=== PATIENT | female | born 1985 | race Caucasian/White ===

== ENCOUNTER 2017-01-02 10:23 | Emergency (ER) | payer SELFPAY ==
[~2017-01-02] VITALS: Ht 170.2 cm; Wt 72.6 kg
[~2017-01-02 10:23] MED LIST: AUGMENTIN 875-1 EACH PO; KEFLEX500 MG PO; MACRODANTIN100 MG PO; NORCO 5-325 TA1 EACH PO; PENICILLIN V P500 MG PO; PYRIDIUM200 MG PO; TYLENOL325 MG PO
== END 2017-01-02 10:43 | disposition home or self-care (01) ==
LOC: ED 10:23
DX: Z00.8 Encounter for other general examination (principal)

== ENCOUNTER 2018-07-04 11:38 | Emergency (ER) | payer OTHER ==
[~2018-07-04] VITALS: Ht 172.7 cm; Wt 72.6 kg
== END 2018-07-04 15:31 | disposition home or self-care (01) ==
LOC: ED 11:38
DX: O03.9 Complete or unspecified spontaneous abortion without complication (principal); O99.331 Smoking (tobacco) complicating pregnancy, first trimester; F17.200 Nicotine dependence, unspecified, uncomplicated; Z3A.08 8 weeks gestation of pregnancy
CPT/HCPCS: 76801; 76817; 80048; 81001; 84702; 85025; 86900; 86901; 96360; 99284-25; J2790; J7030

== ENCOUNTER 2019-05-04 13:30 | Inpatient (IN) | payer OTHER ==
--- NOTE | ~2019-05-04 | OR ---
[facility] [address] [place], [place] [address] Draft DATE OF OPERATION: 05/04/2019 SURGEON: Alanna Ayoub DO PREOPERATIVE DIAGNOSES: 1. Intrauterine at 39 weeks gestation. 2. Spontaneous rupture of membranes. 3. History of prior . 4. Rh negative, status post RhoGAM. POSTOPERATIVE DIAGNOSES: 1. Intrauterine at 39 weeks gestation. 2. Spontaneous rupture of membranes. 3. History of prior . 4. Rh negative, status post RhoGAM. PROCEDURE PERFORMED: Repeat low transverse delivery. ANESTHESIA: Spinal. BOAT OAR MAKER: Parth Baer MD. COMPLICATIONS: None. ESTIMATED BLOOD LOSS: 600 mL. SPECIMENS: None. FINDINGS: Delivery of viable female in the MARTY position with no nuchal cord. 7 pounds 1 ounce with Apgars of 8 and 9 at 1 and 5 minutes respectively. No adhesive disease or contraindications on surgical findings for future . INDICATION: PATIENT NAME: BRAVO COLEY OPERATIVE REPORT DATE OF : [birth year] REPORT #: [id number] PHYSICIAN: ALANNA AYOUB DO PCP: NO PRIMARY CARE PHYSICIAN REPORT IS CONFIDENTIAL AND NOT TO BE RELEASED WITHOUT AUTHORIZATION [facility] [address] [place] [address] Draft Ms. Coley is a pleasant 33-year-old G3, P1-0-1-1 white female with intrauterine at 39 weeks and 1 day gestation, who presents to Labor and Delivery complaining of leaking copious amounts of mucousy clear fluid. The patient was closed, thick, and high and initially Nitrazine was negative. The patient continued to leak fluid and contractions began increasing in frequency and intensity. AmniSure was then performed and that was positive. Decision was made to proceed with repeat low transverse delivery. Risks, benefits, and alternatives were discussed in detail with the patient. The patient understands and wishes to proceed with the procedure. TECHNIQUE: The patient was taken to the operating room. A time-out was performed to confirm correct patient, correct procedure. Spinal anesthesia was adequately established and the patient was prepped and draped in the supine position with a bump under the right hip. Medrano catheter was inserted. ICPs were on and running. The patient received 2 g Ancef preoperatively per SKIP protocol. Heparin was not indicated. A Pfannenstiel skin incision was made through the prior scar and carried down to the fascia where the fascia was nicked in the midline. Fascial incision was extended bilaterally using sharp dissection with Velázquez scissors. The fascia was grasped with Jacinda's, elevated, and the underlying rectus muscles were dissected off bluntly and sharply. Rectus muscles were then bluntly divided in the midline. The peritoneum was grasped with hemostats, elevated, and incised sharply. Peritoneal incision was extended cephalad caudad using sharp and blunt dissection. Survey of the abdomen and pelvis was performed with no adhesive disease noted. Claudio self-retractor was placed. The lower uterine segment identified. Hysterotomy was then performed using a surgical scalpel and hysterotomy was then extended bilaterally using blunt dissection. Very little to no amniotic fluid was noted upon hysterotomy. This surgeon's hand was placed into the uterus and the vertex elevated into the maternal abdomen, delivered with the assistance of fundal pressure. No nuchal cord was noted and the shoulders delivered easily with the assistance of fundal pressure. The remainder of the delivered and the was vigorous and cried at delivery. Cord was then doubly clamped and cut and the handed to the waiting pediatric team for further care. Cord blood was obtained for routine analysis and then the placenta was expressed intact with centrally inserted 3-vessel cord. The uterus was cleared of any remaining products of conception or clot. However, the uterus did remain somewhat boggy, although bleeding was light. An additional 20 units of Pitocin were placed into the bag of LR and bolused. Hysterotomy was then repaired in a running locked suture of 0 Vicryl. A 2nd imbricating suture was then applied with good imbrication using 0 Vicryl. A small amount of oozing was noted in the midline and this was made hemostatic with 2-0 Vicryl [id number] sutures. Good hemostasis was appreciated and the pelvis was irrigated. The Claudio self-retractor was removed. The adnexa were identified and normal and the pericolic gutters were cleared of any remaining blood. ACell sheet was applied to the PATIENT NAME: BRAVO COLEY OPERATIVE REPORT DATE OF : [birth year] REPORT #: [id number] PHYSICIAN: ALANNA AYOUB DO PCP: NO PRIMARY CARE PHYSICIAN REPORT IS CONFIDENTIAL AND NOT TO BE RELEASED WITHOUT AUTHORIZATION [facility] [address] [facility] [place], [place] [address] Draft lower uterine segment and the peritoneum was then reapproximated using 2-0 Vicryl in a running manner. The rectus was then made hemostatic using Bovie electrocautery and rectus was plicated with 3 loose interrupted simple sutures of 0 Vicryl. ACell powder was applied to the rectus sheath. The fascia was then reapproximated using 0 Vicryl in a running nonlocked manner. Subcu was examined, found to be hemostatic after Bovie electrocautery. Subcu was irrigated and again hemostatic. Since subcu was less than 2 cm, this was not reapproximated and the skin was then reapproximated using surgical poonam. The uterus was then Crede'd for a small amount of blood and the patient was taken to PACU in good and stable condition with her . Sponge, needle, instrument count was correct x2 at the end of the procedure. Dr. Baer was present and participated in all portions of the procedure. Alanna Ayoub DO JDW/MODL /[id number] Copies: ~ PATIENT NAME: BRAVO COLEY OPERATIVE REPORT DATE OF : [birth year] REPORT #: [id number] PHYSICIAN: ALANNA AYOUB DO PCP: NO PRIMARY CARE PHYSICIAN REPORT IS CONFIDENTIAL AND NOT TO BE RELEASED WITHOUT AUTHORIZATION
--- NOTE | 2019-05-04 17:13 | NUR ---
05/04/19 1713 Nicole Manzanares 1626 PT ARRIVED IN PACU IN [facility]BC WIDE AWAKE WITH NO C/O'S. 1630 BABY AT BREAST WITH FBC RN AT BEDSIDE HELPING. DAD TAKING PICTURES. 1640 MOM CHANGED SIDES TO BREAST FEED. NO C/O'S. 1650 REPORT GIVEN TO F[facility] RN. DAD AT BEDSIDE.
--- NOTE | 2019-05-05 11:29 | PR ---
[facility] [address] [facility] [place], [place] [address] Signed PP Progress Notes Datetime Report Generated by CPN: 05/05/2019 11:29 SUBJECTIVE: [id number] Pain: Within normal limits Nausea/Vomiting: Denies Flatus: Yes Bowel Movement: No Vital Signs: [id number] Vital Signs: Reviewed; Within Normal Limits EXAM: [id number] Cardiovascular: Normal Respiratory: Normal Abdomen/Uterus: Normal Lochia: Normal Vulva/Perineum: Not Done Breasts: Not Done Extremities: Normal Incision: Normal Progress: Normal Exam Comments: Fundus firm U-2 nontender IMPRESSION/PLAN/PROCEDURES: [id number] Impression: Normal progression Progress Notes: Pt seen and doing well. Ambulating, voiding, and tolerating full diet. Pain and lochia minimal. well. No questions or concerns. Anticipate d/c home tomorrow. Signing Physician: Alanna Ayoub DO Copies: ~ *Electronically Signed* 05/05/19 1129 ALANNA AYOUB DO PATIENT NAME: BRAVO HERNANDEZ JADEN PROGRESS NOTE DATE OF : [birth year] PHYSICIAN: ALANNA AYOUB DO [facility] #: [id number] REPORT IS CONFIDENTIAL AND NOT TO BE RELEASED WITHOUT AUTHORIZATION
--- NOTE | 2019-05-06 08:07 | PR ---
[facility] [address] [facility] [place], [place] [address] Signed PP Progress Notes Datetime Report Generated by CPN: 05/06/2019 08:07 SUBJECTIVE: [id number] Pain: Within normal limits Nausea/Vomiting: Denies Flatus: Yes Bowel Movement: Yes Vital Signs: [id number] Vital Signs: Reviewed; Within Normal Limits EXAM: [id number] Cardiovascular: Normal Respiratory: Normal Abdomen/Uterus: Normal Lochia: Normal Vulva/Perineum: Not Done Breasts: Not Done CVA Tenderness: Normal Extremities: Normal Incision: Normal Progress: Normal Exam Comments: Fundus firm U-1 Minimally tender to palpation IMPRESSION/PLAN/PROCEDURES: [id number] Impression: Normal progression Plan: Remove poonam; Discharge Procedures: Rubella Progress Notes: Pt seen and examined. Doing well. Ambulating, voiding, and tolerating full diet. Pain and lochia minimal. well but c/o increased afterpains. No fever or malodorous discharge. Unsure of plans for pp contraception. Signing Physician: Alanna Ayoub DO Copies: ~ *Electronically Signed* 05/06/19 08 ALANNA AYOUB DO PATIENT NAME: BRAVO HERNANDEZ PROGRESS NOTE DATE OF : [birth year] PHYSICIAN: ALANNA AYOUB DO RPT #: [id number] REPORT IS CONFIDENTIAL AND NOT TO BE RELEASED WITHOUT AUTHORIZATION
== END 2019-05-06 12:47 | disposition home or self-care (01) | DRG 788 ==
LOC: FBC 13:30
PROVIDERS: ADMIT Obstetrics & Gynecology
PROC: 10D00Z1 Extraction of Products of Conception, Low, Open Approach (ICD-10-PCS; principal; 2019-05-04 15:00)
DX: O34.211 Maternal care for low transverse scar from previous cesarean delivery (principal); N85.8 Other specified noninflammatory disorders of uterus; Z3A.39 39 weeks gestation of pregnancy; Z37.0 Single live birth; O99.62 Diseases of the digestive system complicating childbirth; K21.9 Gastro-esophageal reflux disease without esophagitis; O99.334 Smoking (tobacco) complicating childbirth; F17.210 Nicotine dependence, cigarettes, uncomplicated
CPT/HCPCS: 01961; 36415; 59025; 84112; 85027; 99213; A9270; J0690; J1885; J2001; J2270; J2274; J2405; J2590; J3010; J7121

== ENCOUNTER 2021-10-05 10:55 | Inpatient (IN) | payer OTHER ==
[~2021-10-05] VITALS: Ht 175 cm; Wt 92.5 kg
--- NOTE | 2021-10-06 12:57 | NUR ---
10/06/21 1257 Leni Wood 6802 PATIENT INTO ROOM 105. STEVEN RUVALCABA REPORT RECIEVED FROM. PATIENT IS DROWSY. DENIES ANY PAIN OR NASUEA. BREATHING EQUAL AND UNLABORED. OXYGEN SATURATIONS ABOVE 90%. PATIENT SPINAL LEVEL CHECKED. FUNDAL CHECK COMPLETE. SCD'S ON. IVF INFUSING. 18 GAUGE IN RIGHT HAND PATENT.
--- NOTE | 2021-10-07 10:06 | PR ---
[facility] [address] [place], [place] [address] Signed PP Progress Notes Datetime Report Generated by CPN: 10/07/2021 10:06 SUBJECTIVE: [id number] Pain: Within Normal Limits Nausea/Vomiting: Denies Flatus: Yes Bowel Movement: No Vital Signs: [id number] Vital Signs: Reviewed; Within Normal Limits Cardiovascular: Normal Respiratory: Normal Abdomen/Uterus: Normal Lochia: Normal Vulva/Perineum: Not Done Breasts: Not Done CVA Tenderness: Normal Extremities: Normal Incision: Normal Progress: Normal Exam Comments: Fundus firm U-[address] IMPRESSION/PLAN/PROCEDURES: [id number] Impression: Normal Progression Plan: Discharge Progress Notes: Pt seen and examined. Doing well. Ambulatling, voiding, and tolerating full diet. Pain and lochia minimal. well. No fevers/chills/lightheadedness. No concerns. Patient strongly desires d/c home today. Rh negative and rhogam workup pending; will receive prior to d/c if indicated. Reviewed d/c instruction in detail. Planning natural family planning for pp contraception. F/U in 2-3 days for staple removal in the office. All questions answered. Signing Physician: Alanna Ayoub DO Copies: ~ *Electronically Signed* 10/07/21 1006 ALANNA AYOUB DO PATIENT NAME: BRAVO HERNANDEZ JADEN PROGRESS NOTE DATE OF : [birth year] PHYSICIAN: ALANNA AYOUB DO RPT #: [id number] REPORT IS CONFIDENTIAL AND NOT TO BE RELEASED WITHOUT AUTHORIZATION
== END 2021-10-07 15:55 | disposition home or self-care (01) | DRG 786 ==
LOC: FBC 10-06 09:40 → MS 10-07 07:35 → FBC 10-07 10:30
PROVIDERS: ADMIT Obstetrics & Gynecology; ATTEND Obstetrics & Gynecology
PROC: 10D00Z1 Extraction of Products of Conception, Low, Open Approach (ICD-10-PCS; principal; 2021-10-06 12:00)
DX: O34.211 Maternal care for low transverse scar from previous cesarean delivery (principal); K83.1 Obstruction of bile duct; O98.42 Viral hepatitis complicating childbirth; O26.62 Liver and biliary tract disorders in childbirth; Z37.0 Single live birth; Z3A.37 37 weeks gestation of pregnancy; O99.344 Other mental disorders complicating childbirth; F41.9 Anxiety disorder, unspecified; Z79.899 Other long term (current) drug therapy; O77.0 Labor and delivery complicated by meconium in amniotic fluid; B18.2 Chronic viral hepatitis C; O99.02 Anemia complicating childbirth; Z87.891 Personal history of nicotine dependence; O26.893 Other specified pregnancy related conditions, third trimester; L29.9 Pruritus, unspecified
CPT/HCPCS: 36415; 85027; 86850; 86870; 86900; 86901; A9270; J0690; J1650; J1790; J1885; J2001; J2274; J2405; J2550; J2590; J2765; J7121

== ENCOUNTER 2023-02-27 15:09 | Inpatient (IN) | payer OTHER ==
[~2023-02-27] VITALS: Ht 172.7 cm; Wt 89.8 kg
[2023-02-28 06:08] LABS: HEMATOCRIT 34.9 % (35.0-50.0); HEMOGLOBIN 11.6 g/dL (12.0-18.0); MCH 27.6 (27-36); MCHC 33.3 g/dl (30-36); MCV 82.9 fl (81-99); RBC 4.21 M/ul (4.3-5.7); RDW 13.2 (10.5-15.0)
[2023-02-28 06:20] VITALS: BP 129/89
[2023-02-28 07:39] LABS: ABO O; ANTIBODY IDENTIFICATION ANTI-D; ANTIBODY SCREEN POSITIVE; RH NEGATIVE
[2023-02-28 09:04] VITALS: BP 111/65
[2023-02-28 09:14] LABS: AMPHETAMINES, URINE NEGATIVE (NEGATIVE); BARBITURATES, URINE NEGATIVE (NEGATIVE); BUPRENORPHINE, URINE NEGATIVE (NEGATIVE); CANNABINOID, URINE NEGATIVE (NEGATIVE); COCAINE, URINE NEGATIVE (NEGATIVE); ECSTASY, URINE NEGATIVE (NEGATIVE); FENTANYL, URINE NEGATIVE (NEGATIVE); METHADONE, URINE NEGATIVE (NEGATIVE); OPIATES, URINE NEGATIVE (NEGATIVE); OXYCODONE, URINE NEGATIVE (NEGATIVE); PHENCYCLIDINE, URINE NEGATIVE (NEGATIVE)
--- NOTE | 2023-02-28 09:15 | NUR ---
02/28/23 0915 Cassy Zimmerman 0876 PT ARRIVED TO ROOM WITH FBC AND AT BEDSIDE. PT REPORTS PAIN IN MID ABD AND NO NAUSEA. VSS. 0842 BABY TO CHEST WITH FBC RN. FUNDAL CHECK PT GRIMACING AND MOANING AND REPORTS 10/10 PAIN.
[2023-02-28 09:55] LABS: BENZODIAZEPINE, URINE NEGATIVE (NEGATIVE)
[2023-02-28 12:16] LABS: HEMATOCRIT 32.4 % (35.0-50.0); HEMOGLOBIN 10.7 g/dL (12.0-18.0); MCH 27.7 (27-36); MCV 83.8 fl (81-99); PLATELET COUNT 188 K/uL (140-440); RBC 3.87 M/ul (4.3-5.7); RDW 13.4 (10.5-15.0)
[2023-02-28 12:31] LABS: BASOPHILS, MANUAL DIFF 2; INR 1.03 (0.80-1.30); LYMPHOCYTES, MANUAL DIFF 9; NEUTROPHILS, MANUAL DIFF 89; PROTIME 13.1 Sec (11.2-14.2)
[2023-02-28 12:33] LABS: PARTIAL THROMBOPLASTIN TIME 31.9 Sec (22.9-41.3)
--- NOTE | 2023-02-28 14:10 | PR ---
[facility] [address] [place], [place] [address] Signed PP Progress Notes Datetime Report Generated by CPN: 02/28/2023 14:10 SUBJECTIVE: [id number] Pain: Within Normal Limits Pain Comments: bleeding Vital Signs: [id number] Vital Signs: Reviewed; Within Normal Limits Cardiovascular: Normal Respiratory: Normal Abdomen/Uterus: Normal Lochia: Abnormal Vulva/Perineum: Normal Extremities: Normal Incision: Normal Progress: Normal Exam Comments: 1417 total cumulative blood loss 168cc of clot evacuated from the uterus. Pt was uncomfortable but tolerated well. Pt declined exam under anesthesia. IMPRESSION/PLAN/PROCEDURES: [id number] Progress Notes: Called to pt's room for bleeding. Pt w/ evacuation of clot by RN. Labs were normal w/ fibrinogen 369, Hgb 10.7, Plts 188, and PT/PTT/INR normal. Pt received Pitocin, Tranexaminc acid, Cytotec, and methergine. Small amount of continued trickling. On exam, pt w/ moderate sized blood clot in uterine cavity. Clot was expressed from the uterus and weighted for total cQBL 1417. Vitals normal. Exam shows no cervical or vaginal laceration. Discussed that if bleeding continues, would start 2nd IV and consider exam under anesthesia, D_C, and or placement of intrauterine Bakri or Caitlyn. Pt understands and agrees. Signing Physician: Alanna Ayoub DO Copies: ~ *Electronically Signed* 02/28/23 1410 ALANNA AYOUB (GAVINO) DO PATIENT NAME: BRAVO HERNANDEZ JADEN PROGRESS NOTE DATE OF : [birth year] PHYSICIAN: ALANNA AYOUB DO (JD) RPT #: [id number] REPORT IS CONFIDENTIAL AND NOT TO BE RELEASED WITHOUT AUTHORIZATION
[2023-03-01 05:28] LABS: HEMATOCRIT 25.9 % (35.0-50.0); HEMOGLOBIN 8.6 g/dL (12.0-18.0); MCH 27.6 (27-36); MCHC 33.3 g/dl (30-36); MCV 82.8 fl (81-99); RBC 3.13 M/ul (4.3-5.7); RDW 13.2 (10.5-15.0)
[2023-03-01 06:23] LABS: ABO O; ANTIBODY SCREEN POSITIVE; FETAL HEMOGLOBIN SCREEN NEGATIVE; RH NEGATIVE
[2023-03-01 06:24] LABS: RHIG STATUS NOT A CANDIDATE
--- NOTE | 2023-03-01 09:30 | NUR ---
FBC ROUNDS. MOTHER SLEEPING. DID NOT DISTURB. PROVIDED PRAYER.
--- NOTE | 2023-03-01 09:38 | PR ---
[facility] [address] [place], [place] [address] Signed PP Progress Notes Datetime Report Generated by CPN: 03/01/2023 09:37 SUBJECTIVE: [id number] Pain: Within Normal Limits Pain Comments: bleeding Nausea/Vomiting: Denies Flatus: No Bowel Movement: No Vital Signs: [id number] Vital Signs: Reviewed; Within Normal Limits EXAM: Ongoing Cardiovascular: Not Done Respiratory: Not Done Abdomen/Uterus: Normal Lochia: Normal Vulva/Perineum: Not Done Breasts: Not Done CVA Tenderness: Not Done Extremities: Normal Incision: Normal Progress: Normal Exam Comments: 1417 total cumulative blood loss 168cc of clot evacuated from the uterus. Pt was uncomfortable but tolerated well. Pt declined exam under anesthesia. IMPRESSION/PLAN/PROCEDURES: [id number] Impression: Normal Progression Plan: Continue Present Management Procedures: None Progress Notes: S: 37 yo s/p repeat section, hemorrhage. POD #1. Doing well. Denies MIRANDA, CP, SOB, F/C, N/V, RUQ pain, changes in vision, vaginal discharge. Tolerating regular diet, ambulating, voiding, pain controlled. Reports minimal bleeding since interventions yesterday. O: AFVSS Abd: Soft. Fundus firm, below umbilicus. Appropriately tender to palpation. Incision, C/D/I. No erythema or drainage. Musc: DELEON. A/P: Patient well. Continue and postop care. Disposition in house. *Electronically Signed* 03/01/23 0937 FANNY WESTBROOK MD PATIENT NAME: BRAVO HERNANDEZ JADEN PROGRESS NOTE DATE OF : 89 PHYSICIAN: FANNY WESTBROOK MD RPT #: [id number] REPORT IS CONFIDENTIAL AND NOT TO BE RELEASED WITHOUT AUTHORIZATION [address] [place], [place] [address] Signed Likely discharge home tomorrow AM. Signing Physician: Fanny Westbrook MD Copies: ~ *Electronically Signed* 03/01/23 0937 FANNY WESTBROOK MD PATIENT NAME: SHYANNE HERNANDEZKWADWO STANLEY PROGRESS NOTE DATE OF : 89 PHYSICIAN: FANNY WESTBROOK MD RPT #: [id number] REPORT IS CONFIDENTIAL AND NOT TO BE RELEASED WITHOUT AUTHORIZATION
[2023-03-02 05:36] LABS: HEMATOCRIT 26.7 % (35.0-50.0); HEMOGLOBIN 9.1 g/dL (12.0-18.0); MCH 28.7 (27-36); MCHC 34.3 g/dl (30-36); MCV 83.8 fl (81-99); RBC 3.18 M/ul (4.3-5.7); RDW 13.1 (10.5-15.0)
--- NOTE | 2023-03-02 06:40 | PR ---
[facility] [address] [place], [place] [address] Signed PP Progress Notes Datetime Report Generated by CPN: 03/02/2023 06:40 SUBJECTIVE: [id number] Pain: Within Normal Limits Pain Comments: bleeding Nausea/Vomiting: Denies Flatus: Yes Bowel Movement: Yes Vital Signs: [id number] Vital Signs: Reviewed; Within Normal Limits EXAM: Ongoing Cardiovascular: Not Done Respiratory: Not Done Abdomen/Uterus: Normal Lochia: Normal Vulva/Perineum: Not Done Breasts: Not Done CVA Tenderness: Not Done Extremities: Normal Incision: Normal Progress: Normal Exam Comments: 1417 total cumulative blood loss 168cc of clot evacuated from the uterus. Pt was uncomfortable but tolerated well. Pt declined exam under anesthesia. IMPRESSION/PLAN/PROCEDURES: [id number] Impression: Normal Progression Plan: Discharge Procedures: None; Rhogam Progress Notes: 37 yo s/p repeat section. POD #2. Doing well. Denies MIRANDA, CP, SOB F/C, N/V, RUQ pain, changes in vision, vaginal discharge. Tolerating regular diet, ambulating, voiding on own, pain controlled. Had some passage of clots overnight and was started on PO methergine. No reported bleeding or passage of clots during the day. O: AFVSS Abd: Soft, appropriately TTP. Fundus firm and below umbilicus. Incision C/D/I and without erythema or drainage. Sonny in place. Musc: PANCHO. *Electronically Signed* 03/02/23 0640 FANNY WESTBROOK MD PATIENT NAME: BRAVO HERNANDEZ JADEN PROGRESS NOTE DATE OF : [birth year] PHYSICIAN: FANNY WESTBROOK MD RPT #: [id number] REPORT IS CONFIDENTIAL AND NOT TO BE RELEASED WITHOUT AUTHORIZATION [facility] [address] [place] [address] Arley Anders [address] Signed A/P: Patient doing well. Meeting all hospital milestones. Will discharge home today. Signing Physician: Fanny Westbrook MD Copies: ~ *Electronically Signed* 03/02/2340 FANNY WESTBROOK MD PATIENT NAME: BRAVO HERNANDEZ JADEN PROGRESS NOTE DATE OF : [birth year] PHYSICIAN: FANNY WESTBROOK MD RPT #: [id number] REPORT IS CONFIDENTIAL AND NOT TO BE RELEASED WITHOUT AUTHORIZATION
--- NOTE | 2023-04-04 07:54 | OR ---
[facility] [address] [place], [place] [address] Signed DATE OF OPERATION: 02/28/2023 SURGEON: Alanna Ayoub DO PREOPERATIVE DIAGNOSES: 1. Intrauterine at 36 weeks gestation. 2. History of prior . 3. Cholestasis with severe elevation of bile salts with recommendation for delivery in the 36 weeks per MFM. 4. Hepatitis C in . POSTOPERATIVE DIAGNOSES: 1. Intrauterine at 36 weeks gestation. 2. History of prior . 3. Cholestasis with severe elevation of bile salts with recommendation for delivery in the 36 weeks per MFM. 4. Hepatitis C in . ORCHARD SPRAYER: Donna Álvarez MD. PROCEDURE PERFORMED: Repeat low transverse delivery. COMPLICATIONS: None. ESTIMATED BLOOD LOSS: 600 mL. DRAINS: Medrano to gravity. FINDINGS: Delivery of viable female , 6 pounds 4 ounces with Apgars of 9 and 9. Normal uterus, tubes, and ovaries. COMPLICATIONS: None. Electronically Signed By: ALANNA AYOUB DO (JD) 04/04/23 0754 PATIENT NAME: BRAVO COLEY OPERATIVE REPORT DATE OF : [birth year] REPORT #: [id number] PHYSICIAN: ALANNA AYOUB DO (JD) PCP: BENY FLAHERTY MD REPORT IS CONFIDENTIAL AND NOT TO BE RELEASED WITHOUT AUTHORIZATION [address] [address] Signed INDICATIONS: Ms. Coley is a very pleasant 37-year-old G6, P2-0-3-2 with IUP in the 36 weeks gestation. has been complicated by prior and cholestasis. We have been closely monitoring her liver enzymes and bile salts per [facility] recommendation and the patient was noted to have a significant and severe increase in her bile salts prompting recommendation by [facility] to deliver in the 36th week. Risks, benefits, and alternatives were discussed in detail with the patient. The patient understands and wishes to proceed with procedure. TECHNIQUE: The patient was taken to the operating room where a time-out was performed to confirm correct patient and correct procedure. Spinal anesthesia was adequately established. The patient was prepped and draped in the supine position with a bump under the right hip. Medrano catheter was inserted. ICPs were on and running and the patient received 2 g of Ancef preoperatively per SCIP protocol. Once spinal was noted to be adequate, a Pfannenstiel skin incision was made through the prior scar and carried down to the fascia. The fascia was nicked in the midline and fascial incision was extended bilaterally using curved Velázquez scissors. The fascia was grasped with Jacinda's, elevated, and the underlying rectus muscle dissected off bluntly and sharply. Rectus was divided in the midline and the peritoneum was entered bluntly. Peritoneal incision was extended cephalad and caudad using blunt and sharp dissection. The lower uterine segment was identified and appeared normal. The Claudio self retractor was placed in the abdomen and hysterotomy was then performed using a surgical scalpel for clear amniotic fluid. Hysterotomy was extended bilaterally using blunt dissection. The surgeon's hand was placed in the uterine cavity. head elevated and delivered with the assistance of fundal pressure. The was vigorous and cried upon delivery and the cord was doubly clamped and cut. The was handed to the waiting pediatric team for further care. The placenta was delivered, was expressed, intact with a centrally inserted three-vessel cord after obtaining cord blood for routine analysis. The uterus was cleared of any remaining products of conception or clot. Hysterotomy was repaired in two layers of 0 Monocryl, the 1st being a running locked suture and the 2nd being a running imbricating suture in the vertical manner. The pelvis was irrigated and scant amount of bleeding from the hysterotomy was made hemostatic with [id number]. Normal uterus, tubes, and ovaries were appreciated. The Claudio self retractor was removed and the peritoneum was reapproximated using 2-0 Vicryl in a running nonlocked manner. The rectus was irrigated and made hemostatic with judicious use of Bovie electrocautery and was plicated in the midline with loose interrupted sutures of 0 Vicryl. The fascia was then reapproximated using 0 Vicryl in a running nonlocked manner. Subcu was reapproximated using 3-0 Vicryl after the subcu was irrigated and made hemostatic with judicious use of Bovie electrocautery. Skin was reapproximated with surgical poonam. The uterus was Crede'd for a scant amount of blood. The patient remained in the OR for postoperative TAP blocks. Electronically Signed By: ALANNA BROWN) DO LIEN 04/04/23 0754 PATIENT NAME: BRAVO COLEY JADEN OPERATIVE REPORT DATE OF : [birth year] REPORT #: [id number] PHYSICIAN: ALANNA AYOUB DO (JD) PCP: BENY FLAHERTY MD REPORT IS CONFIDENTIAL AND NOT TO BE RELEASED WITHOUT AUTHORIZATION [address] [address] Signed Sponge, needle and instrument count was correct x2 at the end of the procedure. Dr. Álvarez was present and participated in all portions of the procedure. DO CABRERA Currie/MODL /[id number] Copies: ~ Electronically Signed By: ALANNA AYOUB DO (JD) 04/04/23 0754 PATIENT NAME: BRAVO COLEY JADEN OPERATIVE REPORT DATE OF : [birth year] REPORT #: [id number] PHYSICIAN: ALANNA AYOUB DO (JD) PCP: BENY FLAHERTY MD REPORT IS CONFIDENTIAL AND NOT TO BE RELEASED WITHOUT AUTHORIZATION
== END 2023-03-02 11:15 | disposition home or self-care (01) | DRG 787 ==
LOC: FBC 02-28 05:35
PROVIDERS: Obstetrics & Gynecology; ADMIT Obstetrics & Gynecology; ATTEND Obstetrics & Gynecology
PROC: 0UC97ZZ Extirpation of Matter from Uterus, Via Natural or Artificial Opening (ICD-10-PCS; 2023-02-28)
PROC: 10D00Z1 Extraction of Products of Conception, Low, Open Approach (ICD-10-PCS; principal; 2023-02-28 07:30)
DX: O34.211 Maternal care for low transverse scar from previous cesarean delivery (principal); O72.1 Other immediate postpartum hemorrhage; O98.42 Viral hepatitis complicating childbirth; O69.1XX0 Labor and delivery complicated by cord around neck, with compression, not applicable or unspecified; Z3A.36 36 weeks gestation of pregnancy; Z37.0 Single live birth; B19.20 Unspecified viral hepatitis C without hepatic coma
CPT/HCPCS: 01961; 36415; 76942; 80307; 83030; 85025; 85027; 85384; 85610; 85730; 86850; 86870; 86900; 86901; A9270; J0131; J0690; J1100; J1650; J1790; J1885; J2001; J2210; J2274; J2371; J2405; J2590; J2790; J2795; J7121

== ENCOUNTER 2024-12-11 15:14 | Inpatient (IN) | payer OTHER ==
[~2024-12-11] VITALS: Ht 170.2 cm; Wt 88.0 kg
[2024-12-24] MEDS ORDERED: SOD+POT BICARB/CITRIC ACID 2 EA TABLET.EFF PO ONE (05:45)
[2024-12-24] MEDS ORDERED: LACTATED RINGER'S 1,000 ML IV PRN (05:45)
[2024-12-24 05:57] LABS: MCH 27.5 PG (25.6-32.2); MCHC 33.9 g/dL (32.2-35.5); MCV 81.1 fL (79.4-94.8); RBC 3.97 M/uL (3.93-5.22)
[2024-12-24 06:32] LABS: ABO O; ANTIBODY SCREEN NEGATIVE; RH NEGATIVE
[2024-12-24 06:37] LABS: AMPHETAMINES, URINE NEGATIVE (NEGATIVE); BARBITURATES, URINE NEGATIVE (NEGATIVE); BENZODIAZEPINE, URINE NEGATIVE (NEGATIVE); CANNABINOID, URINE NEGATIVE (NEGATIVE); COCAINE, URINE NEGATIVE (NEGATIVE); ECSTASY, URINE POSITIVE (NEGATIVE); FENTANYL, URINE NEGATIVE (NEGATIVE); METHADONE, URINE NEGATIVE (NEGATIVE); OPIATES, URINE NEGATIVE (NEGATIVE); OXYCODONE, URINE NEGATIVE (NEGATIVE); PHENCYCLIDINE, URINE NEGATIVE (NEGATIVE)
[2024-12-24 06:54] VITALS: BP 141/98
[2024-12-24] MEDS ORDERED: TRANEXAMIC ACID IN NACL,ISO-OS 100 ML IV ONE (06:57)
[2024-12-24] MEDS ORDERED: CEFAZOLIN SODIUM 2 GM in SODIUM CHLORIDE 0.9% 100 ML IV SCH (07:00)
[2024-12-24] MEDS ORDERED: fentaNYL citrate 100 MCG/2 ML VIAL ONE (07:10)
[2024-12-24] MEDS ORDERED: MORPHINE SULFATE 1 MG/ML VIAL ONE (07:10)
[2024-12-24] MEDS ORDERED: BUPIVACAINE 0.75% IN DEXTROSE 2 ML AMP ONE (07:10)
[2024-12-24] MEDS ORDERED: LIDOCAINE HCL 2% 5 ML SDV ONE (07:10)
[2024-12-24] MEDS ORDERED: OXYTOCIN 10 UNITS/ML VIAL ONE ×3 (07:10→08:10)
[2024-12-24] MEDS ORDERED: LACTATED RINGER'S 1,000 ML IV ONE (07:14)
[2024-12-24] MEDS ORDERED: GLYCOPYRROLATE 1 MG/5 ML MDV ONE (08:00)
[2024-12-24] MEDS ORDERED: ACETAMINOPHEN 1,000 MG/100 ML VIAL ONE (08:00)
[2024-12-24] MEDS ORDERED: Ropivacaine HCl 0.5% 30 ML VIAL ONE (08:04)
[2024-12-24] MEDS ORDERED: DEXAMETHASONE SOD PHOS 4 MG/ML VIAL ONE ×2 (08:04)
[2024-12-24] MEDS ORDERED: SODIUM CHLORIDE 0.9% 20 ML IV ONE (08:04)
[2024-12-24] MEDS ORDERED: NALOXONE HCL 0.4 MG SYR IV PRN (08:15)
[2024-12-24] MEDS ORDERED: PROCHLORPERAZINE EDISYLATE 10 MG/2 ML VIAL IV PRN ×2 (08:15→09:00)
[2024-12-24] MEDS ORDERED: HYDROmorphone HCL 1 MG/ML SYR IV PRN (08:15)
[2024-12-24] MEDS ORDERED: PROMETHAZINE HCL 25 MG SUPP PR PRN (09:00)
[2024-12-24] MEDS ORDERED: LIDOCAINE 2% VISCOUS 6 ML SYR TOP ONE (09:00)
[2024-12-24] MEDS ORDERED: METOCLOPRAMIDE HCL 10 MG/2 ML SDV IV PRN (09:00)
[2024-12-24] MEDS ORDERED: PROMETHAZINE HCL 25 MG TAB PO PRN (09:00)
[2024-12-24] MEDS ORDERED: OXYTOCIN/0.9 % SODIUM CHLORIDE 500 ML IV SCH ×2 (09:00→19:30)
[2024-12-24] MEDS ORDERED: IBUPROFEN 600 MG TAB PO SCH (09:00)
[2024-12-24] MEDS ORDERED: SENNOSIDES/DOCUSATE 1 EA TAB PO SCH (09:00)
[2024-12-24] MEDS ORDERED: OXYCODONE HCL 5 MG TAB PO PRN (09:00)
[2024-12-24] MEDS ORDERED: LACTATED RINGER'S 1,000 ML IV SCH (09:03)
[2024-12-24] MEDS ORDERED: LABETALOL HCL 100 MG/20 ML MDV IV PRN ×3 (09:45)
--- NOTE | 2024-12-24 09:48 | NUR ---
12/24/24 0948 Christa Segura 0852- FUNDAL CHECK DONE IN OR PRIOR TO MOVE TO ROOM. MODERATE SIZED CLOT NOTED. FUDUS MASSAGED AND FIRM AT UMBILICUS. 0858- PT ARRIVES TO [facility] ROOM 104. MONITORS PUT IN PLACE. BED PLUGGED IN AND IN LOWEST POSITION LOCKED. VITAL SIGNS OBTAINED. PT DENIES PAIN AND NAUSEA. PT REPORTS FEELING "TIRED". PT DENIES ANY DIFFICULTY BREATHING. LR INFUSING.
[2024-12-24] MEDS ORDERED: SIMETHICONE 80 MG CHEW PO SCH (11:00)
[2024-12-24] MEDS ORDERED: TRANEXAMIC ACID IN NACL,ISO-OS 1,000 MG/100 ML PIGGYBACK IV ONE (12:00)
[2024-12-24 13:40] LABS: MCH 27.3 PG (25.6-32.2); MCHC 33.2 g/dL (32.2-35.5); MCV 82.1 fL (79.4-94.8); RBC 3.85 M/uL (3.93-5.22)
[2024-12-24 14:04] LABS: INR 1.03 (0.80-1.30); PROTIME 12.8 Sec (11.2-14.2)
[2024-12-24] MEDS ORDERED: LABETALOL HCL 200 MG TAB PO SCH (15:00)
[2024-12-25] MEDS ORDERED: LACTATED RINGER'S 1,000 ML IV SCH (05:00)
[2024-12-25 05:22] LABS: MCH 27.7 PG (25.6-32.2); MCHC 34.3 g/dL (32.2-35.5); MCV 80.9 fL (79.4-94.8); RBC 3.46 M/uL (3.93-5.22)
[2024-12-25 05:37] LABS: SMEAR REVIEW BLOOD SEE COMMENTS
--- NOTE | 2024-12-25 08:57 | PR ---
[facility] [address] [place], [place] [address] Signed PP Progress Notes Datetime Report Generated by CPN: 12/25/2024 08:57 SUBJECTIVE: [id number] Pain: Within Normal Limits Nausea/Vomiting: Denies Flatus: Yes Vital Signs: [id number] Vital Signs: Reviewed Notable Details: No sustained elevated BPs Cardiovascular: Normal Respiratory: Normal Abdomen/Uterus: Normal Lochia: Normal Vulva/Perineum: Not Done Breasts: Not Done CVA Tenderness: Normal Extremities: Normal Incision: Normal Progress: Normal Exam Comments: Fundus firm U-2 nontender IMPRESSION/PLAN/PROCEDURES: [id number] Impression: Normal Progression Plan: Continue Present Management Progress Notes: Pt seen and examined. Doing well. Ambulating voiding and tolerating full diet. Pt does complain of decrease sensation / urge to void and needing to "push" to pass urine. Unsure if complete bladder emptying. Pain and lochia minimal. well. BPs somewhat elevated and no sustained elevated severe range BPs. Will monitor voiding w/ postvoid residuals and consider reinsertion of catheter if needed. Consider increasing labetalol dose depending on AM vitals. All questions answered. Signing Physician: Alanna Ayoub DO Copies: ~ *Electronically Signed* 12/25/24 0857 ALANNA AYOUB (GAVINO) DO PATIENT NAME: BRAVO HERNANDEZ JADEN PROGRESS NOTE DATE OF : 89 PHYSICIAN: ALANNA AYOUB (JD) DO RPT #: [id number] REPORT IS CONFIDENTIAL AND NOT TO BE RELEASED WITHOUT AUTHORIZATION
[2024-12-25 09:03] VITALS: BP 146/91
--- NOTE | 2024-12-25 17:12 | PR ---
[facility] [address] [facility] [place], [place] [address] Signed PP Progress Notes Datetime Report Generated by CPN: 12/25/2024 17:12 Pain: Within Normal Limits Nausea/Vomiting: Denies Flatus: Yes Vital Signs: Reviewed; Within Normal Limits Notable Details: Stable BPs on current regimen Cardiovascular: Normal Respiratory: Normal Abdomen/Uterus: Normal Lochia: Normal Vulva/Perineum: Not Done Breasts: Not Done CVA Tenderness: Normal Extremities: Normal Incision: Normal Progress: Normal Exam Comments: Fundus firm U-2 nontender, Incision healing well Impression: Normal Progression Plan: Discharge Progress Notes: Pt seen and examined. Doing well. Serial post void residuals measured this afternoon and all <50cc. Pt feeling much better and strongly desires d/c home. Reviewed BPs and antihypertensive treatment w/ labetalol. F/U BP check in 2 days. Reviewed s/sx pp preE. Reviewed d/c meds (including home dose of labetalol 200mg BID) and all questions answered. Signing Physician: Alanna Ayoub DO Copies: ~ *Electronically Signed* 12/25/24 6292 ALANNA AYOUB (GAVINO) DO PATIENT NAME: BRAVO HERNANDEZ PROGRESS NOTE DATE OF : 89 PHYSICIAN: ALANNA AYOUB) DO RPT #: [id number] REPORT IS CONFIDENTIAL AND NOT TO BE RELEASED WITHOUT AUTHORIZATION
--- NOTE | 2024-12-28 10:33 | PATH ---
[facility] [address] [place], [place] [address] Signed SPECIMEN(S): A FALLOPIAN TUBES, BILATERAL SPECIMEN SOURCE: A. FALLOPIAN TUBES, BILATERAL CLINICAL HISTORY: Family history of cancer, repeat FINAL PATHOLOGIC DIAGNOSIS: Bilateral fallopian tubes, bilateral salpingectomy: - Histologically unremarkable fimbria and fallopian tubes with full lumen identified. NA MICROSCOPIC EXAMINATION: Histologic sections of all submitted blocks are examined by light microscopy. These findings, together with the gross examination, support the pathologic diagnosis. GROSS DESCRIPTION: The specimen, labeled and designated "Brijesh, bilateral fallopian tubes," is received in formalin and consists of two red-brown fimbriated fallopian tube segments (8.0 cm in length and ranging in diameter from 0.8 to 1.4 cm, and 7.5 cm in length and ranging in diameter from 0.6 to 1.0 cm). One of the segments is arbitrarily inked blue. Both segments are serially sectioned to reveal red-brown soft cut surfaces. [employer] sections including the fimbriae entirely are submitted in cassette (A1-A2). VB (under the direct supervision of a pathologist) The Gross Description was prepared using a voice recognition system. The report was reviewed for accuracy; however, sound-alike word errors, addition and/or deletions may occur. If there is any question about this report, please contact Client Services. ADDITIONAL NOTES: Immunohistochemical and/or in situ hybridization studies if performed in this case included appropriate positive controls that reacted as expected. This test was developed and its performance characteristics determined by [facility]. It has not been cleared or approved by the U.S. Food and Drug Administration. The FDA has determined that such clearance or approval is not PATIENT NAME: BRAVO HERNANDEZ PATHOLOGY DATE OF : 89 REPORT #: [id number] PHYSICIAN: SHAYNE PATHOLOGY PCP: BENY FLAHERTY MD REPORT IS CONFIDENTIAL AND NOT TO BE RELEASED WITHOUT AUTHORIZATION [facility] [address] [place] [id number] Signed necessary. This test is used for clinical purposes. It should not be regarded as investigational or for research. [facility] is certified under the Clinical Laboratory Improvement Amendments of 1988 (CLIA) as qualified to perform high complexity clinical laboratory testing. PERFORMING LABORATORY: Technical component was performed by [facility], [address] [place] [address] (CLIA# [id number]). Professional interpretation was performed by [facility], [address] [place] [address] (CLIA#: [id number]). Diagnostician: Deric Chakraborty MD Pathologist Electronically Signed 12/28/2024 Copies: ~ PATIENT NAME: BRAVO HERNANDEZ PATHOLOGY DATE OF : 89 REPORT #: [id number] PHYSICIAN: CHRISTOFERYTE PATHOLOGY PCP: BENY FLAHERTY MD REPORT IS CONFIDENTIAL AND NOT TO BE RELEASED WITHOUT AUTHORIZATION
--- NOTE | 2024-12-29 21:16 | OR ---
[address] [address] Signed DATE OF OPERATION: 12/24/2024 SURGEON: Bernice Sullivan MD PREOPERATIVE DIAGNOSES: 1. Intrauterine at 37 and 17th weeks. 2. Prior section x4. 3. Intrahepatic cholestasis of . 4. Desires sterilization. 5. Active hepatitis C. POSTOPERATIVE DIAGNOSES: 1. Intrauterine at 37 and 17th weeks. 2. Prior section x4. 3. Intrahepatic cholestasis of . 4. Desires sterilization. 5. Active hepatitis C. PROCEDURE: Repeat low transverse section, bilateral salpingectomy. FINDINGS: Clear amniotic fluid. A vigorous male infant, of 8 and 9, weight of 7 pounds 3 ounces. Normal uterus, ovaries, and fallopian tubes. ANESTHESIA: Spinal. BULK PIGMENT REDUCER: None. IV FLUIDS: 1500 mL crystalloid. QUANTITATIVE BLOOD LOSS: 580 mL. URINE OUTPUT: 300 mL clear urine. Electronically Signed By: BERNICE SULLIVAN MD 12/29/246 PATIENT NAME: BRAVO HERNANDEZ JADEN OPERATIVE REPORT DATE OF : 89 REPORT #: [id number] PHYSICIAN: BERNICE SULLIVAN MD PCP: BENY FLAHERTY MD REPORT IS CONFIDENTIAL AND NOT TO BE RELEASED WITHOUT AUTHORIZATION [facility] [address] [place] [id number] Signed DRAINS: Medrano to gravity. SPECIMENS: Bilateral fallopian tubes. COUNTS: Correct x2. COMPLICATIONS: None apparent. TECHNIQUE IN DETAIL: With informed consent, the patient was taken to the operating room. She was given intravenous Ancef per protocol. Lower extremities were placed in SCD pneumatic compression type devices for DVT prophylaxis. She was given spinal anesthetic and then prepped and draped in sterile fashion. Time-out was performed per protocol. Under adequate spinal anesthetic, an approximately 8 inch Pfannenstiel skin incision was made at the site of her previous incision. Sharp dissection was carried down to the layer of the rectus fascia which was nicked in the midline. This fascial vicente was enlarged bilaterally using a combination of sharp and blunt dissection. The rectus muscles were taken down from the fascia both superiorly and inferiorly using combination of sharp and blunt dissection. The rectus muscles were in the midline at the most superior aspect. Peritoneum was entered sharply at the most superior aspect of the rectus muscles. This peritoneal opening was enlarged with sharp dissection. Finger sweep was performed on the anterior abdominal wall, ensuring no adhesions present. Once no adhesions were confirmed peritoneal opening was enlarged first with sharp then with blunt dissection. A bladder blade was placed. Using a scalpel, low transverse uterine incision was made. Sharp dissection was carried down to the very superficial layers of the kalli/endometrium. The blunt end of the scalpel was used to breach the final layer. The uterine incision was enlarged using blunt dissection in a superior to inferior direction. The bulging amniotic membranes were ruptured with an Allis clamp. The surgeon's hand was placed into the lower uterine segment. head was elevated and delivered with fundal pressure. There was a nuchal cord x1 which was manually reduced. Shoulders delivered easily with gentle traction and fundal pressure. Delay of the cord clamping was performed for approximately 10 seconds. Cord was then clamped x2 and cut and baby was handed to the transition team. The placenta delivered intact with a three-vessel cord using gentle traction and fundal Electronically Signed By: BERNICE SULLIVAN MD 12/29/24 2116 PATIENT NAME: BRAVO HERNANDEZ OPERATIVE REPORT DATE OF : 89 REPORT #: [id number] PHYSICIAN: BERNICE SULLIVAN MD PCP: BENY FLAHERTY MD REPORT IS CONFIDENTIAL AND NOT TO BE RELEASED WITHOUT AUTHORIZATION [facility] [address] [place], [place] [address] Signed massage. The uterus was externalized and the uterine cavity was curetted with laparotomy sponges. Uterine incision was closed with 0 Monocryl in a running locked manner. Good hemostasis was obtained with a single layer of closure. A moist laparotomy was used to apply pressure to the hysterotomy site and attention was turned to the fallopian tubes. The left fallopian tube was identified and followed to its fimbriated end. It was elevated in two locations with Shiloh clamps. Using the hand-held LigaSure device the medial aspect of the left fallopian tube was transected after cautery. The mesosalpinx was then cauterized and cut along the edge of the mesosalpinx close to the tube. This was carried out in a lateral direction. The larger vessels in the mesosalpinx were cauterized twice. The left fallopian tube was sent to Pathology. The area of removal of the tube was inspected and found to be very hemostatic. Same procedure was carried out on the right fallopian tube notably following it to its fimbriated end and double cautery of the larger vessels. The posterior cul-de-sac was then cleared of all blood and clot. The uterus was then returned to the pelvis. The left and right pericolic gutters were cleared of all blood and clot. We then did a second layer closure of the hysterotomy site with 0 Monocryl in a running fashion. Good hemostasis obtained. The bladder was inspected and found to be intact and hemostatic. At this point, we reapproximated the rectus muscles and peritoneum using 2-0 chromic in a running fashion. The rectus muscle bellies were inspected and rendered hemostatic with electrocautery device. The rectus fascia was reapproximated with 0 Vicryl in a running fashion. Superficial incision was irrigated and rendered hemostatic with the electrocautery device. Subcutaneous tissue was reapproximated with 2-0 chromic in a running fashion. The skin was closed within the Insorb stapler device. Steri-Strips and Dermabond were placed and a bandage was placed over the incision. The uterus was then expressed of all clots. DISPOSITION: The patient and baby were taken to the recovery room in stable condition. MD CATHY Corley/JULIOL /[id number] Electronically Signed By: BERNICE SULLIVAN MD 12/29/24 2116 PATIENT NAME: BRAVO HERNANDEZ OPERATIVE REPORT DATE OF : 89 REPORT #: [id number] PHYSICIAN: BERNICE SULLIVAN MD PCP: BENY FLAHERTY MD REPORT IS CONFIDENTIAL AND NOT TO BE RELEASED WITHOUT AUTHORIZATION [facility] [address] [place], [place] [address] Signed Copies: ~ Electronically Signed By: BERNICE SULLIVAN MD 12/29/24 2116 PATIENT NAME: BRAVO HERNANDEZ [facility] OPERATIVE REPORT DATE OF : 89 REPORT #: [id number] PHYSICIAN: BERNICE SULLIVAN MD PCP: BENY FLAHERTY MD REPORT IS CONFIDENTIAL AND NOT TO BE RELEASED WITHOUT AUTHORIZATION
== END 2024-12-25 17:56 | disposition home or self-care (01) | DRG 784 ==
LOC: FBC 12-24 05:00
PROVIDERS: Obstetrics & Gynecology; ADMIT Obstetrics & Gynecology; ATTEND Obstetrics & Gynecology
PROC: 10D00Z1 Extraction of Products of Conception, Low, Open Approach (ICD-10-PCS; principal; 2024-12-24 07:30)
PROC: 0UT70ZZ Resection of Bilateral Fallopian Tubes, Open Approach (ICD-10-PCS; 2024-12-24 07:30)
DX: O34.211 Maternal care for low transverse scar from previous cesarean delivery (principal); O26.643 Intrahepatic cholestasis of pregnancy, third trimester; O98.42 Viral hepatitis complicating childbirth; B19.20 Unspecified viral hepatitis C without hepatic coma; O13.4 Gestational [pregnancy-induced] hypertension without significant proteinuria, complicating childbirth; Z30.2 Encounter for sterilization; Z37.0 Single live birth; Z3A.37 37 weeks gestation of pregnancy
CPT/HCPCS: 01961; 36415; 80307; 85027; 85060; 85379; 85384; 85610; 85730; 86850; 86900; 86901; 88302; A9270; J0131; J0360; J0688; J1100; J2003; J2274; J2405; J2590; J2795; J3010; J7121